=== PATIENT | female | born 2000 | race Caucasian/White ===

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

== ENCOUNTER 2022-11-13 19:21 | Inpatient (IN) ==
--- NOTE | 2022-11-13 19:59 | Emergency Department Note ---
Impression & Plan Depression with suicidal ideation ED Provider Note NAME: BRITTANY STEPHEN AGE: 22 SEX: F : 2000 ARRIVES VIA: Walk-In INFORMANT: Patient, ED PROVIDER(S): Davis Ortega MD CHIEF COMPLAINT: Suicidal ideation, thoughts of overdose MEDICAL DECISION MAKING: Patient's blood work shows a normal white count H&H and platelet count. Kidney function is unremarkable. Patient did recently undergo treatment for URI w/ Z pack. Patient has a normal white count H&H and platelet count. Patient was the medically cleared seen and evaluated by the psych manager case. Referrals were made and the patient was admitted to the inpatient psychiatric service. Urine culture pending at the time of admission. Patient does not complain of dysuria at this time Prior /Outside records reviewed: I did review [facility] crisis intervention services from July 2017. Patient had plan to kill herself on August 25 without active plan but has had ideas such as crashing car hanging or overdosing. Differential diagnosis: Mood disorder, infection, hypoglycemia, electrolyte abnormalities, cardiac sources, intracerebral event, toxicologic, trauma, neurologic, as well as other pathologies. HPI: Patient does present due to concern for suicidal ideation with plan to overdose on pills which were her prescription medications. Patient states that she had been in her room and the grandmother had noted that she had gone to get a drink and never came out and that she was crying and wanted to overdose. The patient did not take the medications. The patient does have a prior history of inpatient admission in 2018 at the [facility]. Patient has had thoughts of overdose but no prior history of attempted suicide. Patient Nuys any [place] or [place]. Patient has been having some [facility] which have made things difficult for her. The patient states that she has had increased sleep and that her appetite has been poor. Patient did recently have a cold and finished a Z- Del yesterday. The patient does vape. The patient uses alcohol rarely. Patient does use marijuana. PAST MEDICAL HISTORY: See Below PAST SURGICAL HISTORY: See Below SOCIAL HISTORY: See Below HOME MEDICATIONS: See Below ALLERGIES: See Below VITALS: See Below PHYSICAL EXAMINATION: GENERAL: NAD, non-toxic. EYE EXAM: Normal conjunctiva. PERRL, no anisocoria and EOM's grossly intact w/o pain. OROPHARYNX: Moist mucus membranes, grossly normal dentition. NECK: Supple, no nuchal rigidity, no adenopathy, non-tender. No signs of meningismus. FROM of the neck with good chin to chest and neck extension. No stridor. LUNGS: Clear to auscultation. Normal chest wall mechanics. HEART: NSR, no MRG. ABDOMEN: Abdomen soft, non-tender, no masses, no rebound or guarding. BACK: No CVA TTP. SKIN: No rashes and no bruising. UPPER EXTREMITIES: Upper extremities are grossly normal. LOWER EXTREMITIES: Grossly normal, no edema. NEURO EXAM: A&O x3, cranial nerves II-XII grossly intact, normal speech, moves all 4 extremities. Psych: Depressed mood, positive SI with plan, negative HI or AVH. Past Med/Surg History Medical History Depression Surgical History History of tonsillectomy Social History Smoking Status: Current every day smoker Tobacco Type: E-cigarettes / Vaping Preferred Language: Romansh Communication Ability: Effective Strike On Machine Operator Required: No Beliefs That Will Affect Care: None Feels Safe at Home: Yes Gender Identity: Female Assistive Devices: None Allergies Allergies Allergy/AdvReac Type Severity Reaction Status Date / Time Flu Virus Vaccine Allergy Unknown HIVES Uncoded 03/14/20 16:25 Home Meds Home Medications Medication Instructions Recorded Confirmed Control Pills 1 tab PO DAILY 08/07/18 03/14/20 bupropion HCl 150 mg 24 hr tablet, 150 mg PO QAM 03/14/20 11/13/22 extended release (Wellbutrin XL) cetirizine 10 mg tablet (Zyrtec) 10 mg PO DAILY PRN Allergy Symptoms 11/13/22 11/13/22 paroxetine HCl 30 mg tablet (Paxil) 30 mg PO DAILY 11/13/22 11/13/22 Results & Data (ED) Vital Signs Vital Signs - 24 hr 11/13/22 19:24 Temperature 36.3 C L Temperature Source Temporal Artery Scan Pulse Rate 74 Respiratory Rate 18 Respiratory Effort / Characteristics Non-Labored Spontaneous Respiratory Depth Normal Respiratory Pattern Regular Blood Pressure 129/83 Blood Pressure Mean 98 Pulse Oximetry 97 Oxygen Delivery Method Room Air Sepsis Recent Fever Within 48 Hours No Sepsis New/Unexplained Change in Mental Status No Sepsis Action Taken by Nursing No Action Required Home Medications Current Medication List: was personally reviewed by me Laboratory Data Attestation: I reviewed the patient's lab results. 11/13/22 20:21 11/13/22 20:21 Lab Results 11/13/22 11/13/22 11/13/22 Range/Units 19:46 19:46 20:04 WBC (4.8-10.8) K/ul RBC (4.20-5.40) M/uL Hgb (12.0-16.0) g/dl Hct (37.0-47.0) % MCV (80.0-100.0) fL MCH (25.0-34.0) pg MCHC (32.0-36.0) g/dL RDW Std Deviation (36.4-46.3) fL RDW Coeff of Aguilar (11.5-14.5) % Plt Count (130-400) K/uL MPV (9.4-12.4) fL Immature Gran % (Auto) % Neut % (Auto) % Lymph % (Auto) % Pender % (Auto) % Eos % (Auto) % Baso % (Auto) % Neut # (Auto) (1.40-6.50) K/uL Lymph # (Auto) (1.2-3.4) K/uL Pender # (Auto) (0.11-0.59) K/uL Eos # (Auto) (0-0.50) K/uL Baso # (Auto) (0-0.2) K/uL Immature Gran # (Auto) (0.01-0.20) K/uL Sodium (136-145) mmol/L Potassium (3.5-5.1) mmol/L Chloride (98-107) mmol/L Carbon Dioxide (21-32) mmol/L Anion Gap (3-11) BUN (6-23) mg/dl Creatinine (0.6-1.2) mg/dl Est Cr Clr Drug Dosing ml/min Est GFR ( Amer) ml/min Est GFR (Non-Af Amer) ml/min BUN/Creatinine Ratio (10-20) Glucose (70-99(Fasting)) mg/dl Calcium (8.6-10.3) mg/dl Total Bilirubin (0.2-1.0) mg/dl AST (13-39) U/L ALT (7-52) U/L Alkaline Phosphatase (34-104) U/L Total Protein (6.0-8.3) gm/dl Albumin (3.4-5.0) gm/dl Globulin (2.5-4.0) gm/dl Albumin/Globulin Ratio (0.9-2) TSH (0.300-4.500) uIu/ml Urine Color Dark Yellow Urine Appearance Cloudy A (Clear) Urine pH 6.0 (4.5-7.5) Ur Specific [place] 1.028 (1.000-1.030) Urine Protein Negative (Negative) Urine Glucose (UA) Negative (Negative) Urine Ketones Trace H (Negative) Urine Blood Negative (Negative) Urine Nitrite Positive A (Negative) Urine Bilirubin Negative (Negative) Urine Urobilinogen Negative (Negative) Ur Leukocyte Esterase Negative (Negative) Urine WBC (Auto) 5-10 H (0-5) /hpf Urine RBC (Auto) 0-4 (0-4) /hpf U Hyaline Cast (Auto) 1-5 (0-5) /lpf U Epithel Cells (Auto) >30 H (0-5) /lpf Urine Bacteria (Auto) 1+ H (Negative) Urine Test Negative (Negative) Salicylates (3.0-30) mg/dl Urine Opiates Screen Neg (Neg) Ur Methadone, Qual Neg (Neg) Acetaminophen (10-30) ug/ml Urine Barbiturates Neg (Neg) Ur Phencyclidine (PCP) Neg (Neg) U Amphetamin/Meth Scrn Neg (Neg) MDMA (Ecstasy) Screen Pos H (Neg) U Benzodiazepines Scrn Neg (Neg) Ur Cocaine Metabolite Neg (Neg) U Marijuana (THC) Screen Pos H (Neg) Ethyl Alcohol mg/dL (<10.0) mg/dl SARS-CoV-2, RNA, NAAT (NEGATIVE) 11/13/22 11/13/22 11/13/22 Range/Units 20:04 20:20 20:21 WBC 9.09 (4.8-10.8) K/ul RBC 4.15 L (4.20-5.40) M/uL Hgb 13.7 (12.0-16.0) g/dl Hct 40.2 (37.0-47.0) % MCV 96.9 (80.0-100.0) fL MCH 33.0 (25.0-34.0) pg MCHC 34.1 (32.0-36.0) g/dL RDW Std Deviation 42.5 (36.4-46.3) fL RDW Coeff of Aguilar 12.0 (11.5-14.5) % Plt Count 235 (130-400) K/uL MPV 9.5 (9.4-12.4) fL Immature Gran % (Auto) 0.3 % Neut % (Auto) 61.9 % Lymph % (Auto) 30.5 % Pender % (Auto) 5.5 % Eos % (Auto) 1.5 % Baso % (Auto) 0.3 % Neut # (Auto) 5.62 (1.40-6.50) K/uL Lymph # (Auto) 2.77 (1.2-3.4) K/uL Pender # (Auto) 0.50 (0.11-0.59) K/uL Eos # (Auto) 0.14 (0-0.50) K/uL Baso # (Auto) 0.03 (0-0.2) K/uL Immature Gran # (Auto) 0.03 (0.01-0.20) K/uL Sodium (136-145) mmol/L Potassium (3.5-5.1) mmol/L Chloride (98-107) mmol/L Carbon Dioxide (21-32) mmol/L Anion Gap (3-11) BUN (6-23) mg/dl Creatinine (0.6-1.2) mg/dl Est Cr Clr Drug Dosing ml/min Est GFR ( Amer) ml/min Est GFR (Non-Af Amer) ml/min BUN/Creatinine Ratio (10-20) Glucose (70-99(Fasting)) mg/dl Calcium (8.6-10.3) mg/dl Total Bilirubin (0.2-1.0) mg/dl AST (13-39) U/L ALT (7-52) U/L Alkaline Phosphatase (34-104) U/L Total Protein (6.0-8.3) gm/dl Albumin (3.4-5.0) gm/dl Globulin (2.5-4.0) gm/dl Albumin/Globulin Ratio (0.9-2) TSH (0.300-4.500) uIu/ml Urine Color Urine Appearance (Clear) Urine pH (4.5-7.5) Ur Specific [place] (1.000-1.030) Urine Protein (Negative) Urine Glucose (UA) (Negative) Urine Ketones (Negative) Urine Blood (Negative) Urine Nitrite (Negative) Urine Bilirubin (Negative) Urine Urobilinogen (Negative) Ur Leukocyte Esterase (Negative) Urine WBC (Auto) (0-5) /hpf Urine RBC (Auto) (0-4) /hpf U Hyaline Cast (Auto) (0-5) /lpf U Epithel Cells (Auto) (0-5) /lpf Urine Bacteria (Auto) (Negative) Urine Test (Negative) Salicylates < 3.0 L (3.0-30) mg/dl Urine Opiates Screen (Neg) Ur Methadone, Qual (Neg) Acetaminophen < 3 L (10-30) ug/ml Urine Barbiturates (Neg) Ur Phencyclidine (PCP) (Neg) U Amphetamin/Meth Scrn (Neg) MDMA (Ecstasy) Screen (Neg) U Benzodiazepines Scrn (Neg) Ur Cocaine Metabolite (Neg) U Marijuana (THC) Screen (Neg) Ethyl Alcohol mg/dL (<10.0) mg/dl SARS-CoV-2, RNA, NAAT NEGATIVE (NEGATIVE) 11/13/22 11/13/22 11/13/22 Range/Units 20:21 20:21 20:22 WBC (4.8-10.8) K/ul RBC (4.20-5.40) M/uL Hgb (12.0-16.0) g/dl Hct (37.0-47.0) % MCV (80.0-100.0) fL MCH (25.0-34.0) pg MCHC (32.0-36.0) g/dL RDW Std Deviation (36.4-46.3) fL RDW Coeff of Aguilar (11.5-14.5) % Plt Count (130-400) K/uL MPV (9.4-12.4) fL Immature Gran % (Auto) % Neut % (Auto) % Lymph % (Auto) % Pender % (Auto) % Eos % (Auto) % Baso % (Auto) % Neut # (Auto) (1.40-6.50) K/uL Lymph # (Auto) (1.2-3.4) K/uL Pender # (Auto) (0.11-0.59) K/uL Eos # (Auto) (0-0.50) K/uL Baso # (Auto) (0-0.2) K/uL Immature Gran # (Auto) (0.01-0.20) K/uL Sodium 138 (136-145) mmol/L Potassium 4.0 (3.5-5.1) mmol/L Chloride 107 (98-107) mmol/L Carbon Dioxide 27 (21-32) mmol/L Anion Gap 4 (3-11) BUN 12 (6-23) mg/dl Creatinine 0.66 (0.6-1.2) mg/dl Est Cr Clr Drug Dosing 141.2 ml/min Est GFR ( Amer) 144.3 ml/min Est GFR (Non-Af Amer) 124.5 ml/min BUN/Creatinine Ratio 18.2 (10-20) Glucose 80 (70-99(Fasting)) mg/dl Calcium 9.3 (8.6-10.3) mg/dl Total Bilirubin 0.7 (0.2-1.0) mg/dl AST 14 (13-39) U/L ALT 15 (7-52) U/L Alkaline Phosphatase 65 (34-104) U/L Total Protein 6.9 (6.0-8.3) gm/dl Albumin 4.3 (3.4-5.0) gm/dl Globulin 2.6 (2.5-4.0) gm/dl Albumin/Globulin Ratio 1.7 (0.9-2) TSH 0.787 (0.300-4.500) uIu/ml Urine Color Urine Appearance (Clear) Urine pH (4.5-7.5) Ur Specific [place] (1.000-1.030) Urine Protein (Negative) Urine Glucose (UA) (Negative) Urine Ketones (Negative) Urine Blood (Negative) Urine Nitrite (Negative) Urine Bilirubin (Negative) Urine Urobilinogen (Negative) Ur Leukocyte Esterase (Negative) Urine WBC (Auto) (0-5) /hpf Urine RBC (Auto) (0-4) /hpf U Hyaline Cast (Auto) (0-5) /lpf U Epithel Cells (Auto) (0-5) /lpf Urine Bacteria (Auto) (Negative) Urine Test (Negative) Salicylates (3.0-30) mg/dl Urine Opiates Screen (Neg) Ur Methadone, Qual (Neg) Acetaminophen (10-30) ug/ml Urine Barbiturates (Neg) Ur Phencyclidine (PCP) (Neg) U Amphetamin/Meth Scrn (Neg) MDMA (Ecstasy) Screen (Neg) U Benzodiazepines Scrn (Neg) Ur Cocaine Metabolite (Neg) U Marijuana (THC) Screen (Neg) Ethyl Alcohol mg/dL < 10.0 (<10.0) mg/dl SARS-CoV-2, RNA, NAAT (NEGATIVE) Administered Medications Bupropion HCl (Bupropion Xl 150 Mg Tabcr) 150 mg PO [facility] Stop: 12/14/22 10:29 Last Admin: 11/14/22 11:24 Dose: 150 mg Documented By: KALIF Paroxetine [facility] ([facility]ox[facility] Hcl 20 Mg Tab) [facility] [place]: 12/14/22 10:29 Last Admin: 11/14/22 11:24 Dose: 40 mg Documented By: TLF Discharge Plan Visit Data Chief Complaint: Mental Health Evaluation Stated Complaint: SUICIDAL,SEVERE DEPRESSION,MHE ED Provider: Davis Ortega Discharge Problem: Depression with suicidal ideation Patient Disposition: Admitted As Inpatient Discharge Instructions Interventions: ED Discharge Assessment Last Done: 11/13/22 21:54
[2022-11-13 20:37] LABS: Pregnancy Test, Urine Negative (Negative)
[2022-11-13 20:38] LABS: Basophils # (auto) 0.03 K/uL (0-0.2); Basophils % (auto) 0.3 %; Eosinophils # (auto) 0.14 K/uL (0-0.50); Eosinophils % (auto) 1.5 %; Hematocrit (blood only) 40.2 % (37.0-47.0); Hemoglobin 13.7 g/dl (12.0-16.0); Immature Granulocytes # (auto) 0.03 K/uL (0.01-0.20); Immature Granulocytes % (auto) 0.3 %; Lymphocytes # (auto) 2.77 K/uL (1.2-3.4); Lymphocytes % (auto) 30.5 %; Mean Corpuscular Hgb Conc 34.1 g/dL (32.0-36.0); Mean Corpuscular Volume 96.9 fL (80.0-100.0); Mean Platelet Volume 9.5 fL (9.4-12.4); Monocytes % (auto) 5.5 %; Neutrophils # (auto) 5.62 K/uL (1.40-6.50); Neutrophils % (auto) 61.9 %; Platelet Count 235 K/uL (130-400); RDW Standard Deviation 42.5 fL (36.4-46.3); Red Blood Count 4.15 M/uL (4.20-5.40); White Blood Count 9.09 K/ul (4.8-10.8)
[2022-11-13 20:38] LABS: Appearance Urine Cloudy (Clear); Bacteria Urine Automated 1+ (Negative); Bilirubin Urine Negative (Negative); Blood Urine Negative (Negative); Color Urine Dark Yellow; Epithelial Cell Urine Auto >30 /lpf (0-5); Glucose Urine UA Negative (Negative); Ketones Urine Trace (Negative); Leukocyte Esterase Urine Negative (Negative); Nitrite Urine Positive (Negative); Protein Urine Negative (Negative); Specific Gravity Urine 1.028 (1.000-1.030); Urobilinogen Urine Negative (Negative)
[2022-11-13 20:52] LABS: Albumin Globulin Ratio 1.7 (0.9-2); Albumin Level 4.3 gm/dl (3.4-5.0); BUN Creatinine Ratio 18.2 (10-20); Bilirubin,Total 0.7 mg/dl (0.2-1.0); Calcium 9.3 mg/dl (8.6-10.3); Creatinine Clr Calc Pharmacy 141.2 ml/min; Est GFR (African American) 144.3 ml/min; Est GFR (Non-African American) 124.5 ml/min; Globulin 2.6 gm/dl (2.5-4.0); Total Protein 6.9 gm/dl (6.0-8.3)
[2022-11-13 20:56] LABS: RBC Urine Automated 0-4 /hpf (0-4)
[2022-11-13 21:01] LABS: Acetaminophen < 3 ug/ml (10-30); Salicylate < 3.0 mg/dl (3.0-30)
[2022-11-13 21:05] LABS: Amphetamines+Metham, Urine Neg (Neg); Barbiturates, Urine Neg (Neg); Benzodiazepine, Urine Neg (Neg); Cocaine, Urine Neg (Neg); MDMA (Ecstacy), Urine Pos (Neg); Methadone, Urine Neg (Neg); Opiate, Urine Neg (Neg); Phencyclidine, Urine Neg (Neg)
[2022-11-13] MEDS ORDERED: BISMUTH SUBSALICYLATE LIQD 236 ML PO PRN (22:29)
[2022-11-13] MEDS ORDERED: MAGNESIUM HYDROXIDE SUSP 30 ML UDC PO PRN (22:29)
[2022-11-13] MEDS ORDERED: hydrOXYzine HCl 25 MG TAB PO PRN ×2 (22:29)
[2022-11-13] MEDS ORDERED: ALUMINUM/MAGNESIUM SUSP 30 ML UDC PO PRN (22:29)
[2022-11-13] MEDS ORDERED: SODIUM CHLORIDE 0.65% NA SOLN 45 ML (OCEAN) PRN (22:29)
[2022-11-13] MEDS ORDERED: ACETAMINOPHEN 325 MG TAB PO PRN (22:29)
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
[2022-11-14] MEDS ORDERED: CETIRIZINE HCL 10 MG TABLET PO PRN (10:18)
[2022-11-14] MEDS: buPROPion XL 150 MG TABCR PO SCH (11:24)
[2022-11-14] MEDS: PARoxetine HCL 20 MG TAB PO SCH (11:24)
[2022-11-14] MEDS ORDERED: NICOTINE POLACRILEX 2 MG GUM MT PRN (18:57)
[2022-11-14] MEDS: NICOTINE 14 MG/24 HR PATCH TD SCH (19:48)
--- NOTE | 2022-11-15 06:21 | Psychiatric Progress Note ---
Date of Service November 15, 2022 Impression / Recommendations Impression 22 year old woman with a history of MDD and PTSD who was admitted for worsening depression and SI with plan to overdose in context of increased stressors and recent medical challenges. Diagnostically consistent with likely MDD, recurrent episode as well as complex PTSD and possible contribution from cannabis use/cannabis induced depressive symptoms. She is deemed in need of psychiatric hospitalization for diagnostic clarification, safety and stabilization, medication management and development of further coping skills. 11/15/2022: Mood starting to improve, fewer PTSD and depression symptoms; discussed UTI with hospitalist who recommended based on review of current past urine cultures that she been started on cefuroxime 250mg BID for 5 days which she is agreeable to. (1) Depression with suicidal ideation: (2) MDD (major depressive disorder), recurrent episode, severe: (3) Post traumatic stress disorder (PTSD): Plan 11/16/2022: Continue with current medications and tx plan. Start cefuroxime 250mg BID po for 5 days for UTI. 11/15/2022:Continue current medications and tx plan. 11/14/2022: The patient was admitted to the [facility] ([facility]) on q15 min checks (behavioral with suicide precautions) for safety. The patient will participate in group, recreational, and milieu therapies and will be offered additional individual and family sessions as clinically appropriate. -Increase Paxil to 40mg -Continue with Wellbutrin XL 150mg daily -Awaiting UA culture, just completed antibiotic course for UTI so will await s tarting antibiotic until culture returns unless symptoms worsen in meantime Inventory Assets Strengths: supportive relationships, willing to get treatment Needs: insurance, outpatient services, safety and stabilization, medication adjustment, additional coping skills Suicide Risk Level Suicide Risk Level: Moderate (q15 min suicide checks) (depression with SI with plan prior to admission but mood improving, feels safe in the hospital, able to safety contract and agrees to let nursing/staff know should they develop plan, intent or feel unable to remain safe. ) Risk Factors Assessment Male: No : Yes Do You Have Access To A Gun?: No Health Problems: Yes Mental Health Diagnoses: Yes Substance Use Disorders: Yes (cannabis use) Previous Attempt: Yes (interrupted attempt) Family History of Suicide: No Previous Psychiatric Hospitalization: Yes Protective Factors Assessment Employed: Yes ([employer]) Stable Relationships: Yes (with boyfriend) Good Rapport with Provider: Yes (with PCP) Interval History Identifying Information BRITTANY STEPHEN is a 22-year-old woman who currently lives with her maternal grandmother in [place], has a history of PTSD and MDD, and was admitted on 11/13/22 21:40 on a 201 voluntary commitment for SI with plan of overdosing on her Wellbutrin. Chief Complaint "I have a little more hope". Review of Systems Sleep Information Total Hours of Sleep: 7 Meal Information Percent Meal Consumed - Breakfast: 40 Percent Meal Consumed - Lunch: 100 Percent Meal Consumed - Dinner: 90 Subjective Subjective Patient was seen & assessed and interval progress reviewed with treatment team nursing and social work. Had her mom visit last night. [place] more hopeful this morning and is now reflecting on how she got to the point of feeling suicidal and not remembering that "there is so much help out there". She is liking the Paxil increase and denies any medication side effects. Sleeping well. Motivational interviewing and plans to avoid cannabis use after discharge, wants to start playing piano again instead as an alternative coping mechanism and habit. had some burning with urination this morning and thought her urine smelled "like it was infected". Has been experiencing chronic UTIs for last few months, recently completed 3 day z-pack for this. Physical Exam Psychiatric Orientation: alert and oriented x 3 Apperance: appropriately dressed and appropriately groomed Eye Contact: good eye contact Motor Behavior: no abnormal motor movements Speech: normal rate/rhythm/volume of speech Affect: + anxious affect and + constricted affect (but with more smiles) Mood: + depressed mood and + anxious mood Thought Process: goal directed thought process Thought Content: reality based without delusions Suicidal Thoughts: denies suicidal thoughts, denies suicidal plan and denies suicidal intent Homicidal Thoughts: denies homicidal thoughts Hallucinations: no auditory hallucinations and no visual hallucinations Cognition: recent memory grossly intact, remote memory grossly intact, attention grossly intact and language grossly intact Estimated Intelligence: consistent with education level Insight: + fair insight Judgment: + fair judgement Vital Signs (Past 24 Hours) Last Vital Signs Temp 36.9 C 11/14/22 06:00 Pulse 59 L 11/14/22 06:47 Resp 16 11/14/22 06:00 BP 101/68 11/14/22 06:47 Pulse Ox 98 11/14/22 06:00 O2 Del Method Room Air 11/14/22 06:00 Results & Data ([facility]) Current Inpatient Medications Current Inpatient Medications: Current Inpatient Medications Acetaminophen (Acetaminophen 325 Mg Tab) 650 mg PO Q4H PRN PRN Reason: Headache or Minor Fever Stop: 12/13/22 22:28 Al Hydrox/Mg Hydrox/Simethicone (Aluminum/Magnesium Susp 30 Ml Udc) 30 ml PO Q4H PRN PRN Reason: GI Upset Stop: 12/13/22 22:28 Bismuth Subsalicylate (Bismuth Subsalicylate Liqd 236 Ml) 15 ml PO PRN PRN PRN Reason: Loose Stool Stop: 12/13/22 22:28 Bupropion HCl (Bupropion Xl 150 Mg Tabcr) 150 mg PO QAM [facility] Stop: 12/14/22 10:29 Last Admin: 11/14/22 11:24 Dose: 150 mg Cetirizine HCl (Cetirizine Hcl 10 Mg Tablet) 10 mg PO DAILY PRN PRN Reason: Allergy Symptoms Stop: 12/14/22 10:17 Hydroxyzine HCl (Hydroxyzine Hcl 25 Mg Tab) 50 mg PO HSZ PRN PRN Reason: Insomnia Stop: 12/13/22 22:28 Hydroxyzine HCl (Hydroxyzine Hcl 25 Mg Tab) 25 mg PO Q4H PRN PRN Reason: Anxiety Stop: 12/13/22 22:28 Magnesium Hydroxide (Magnesium Hydroxide Susp 30 Ml Udc) 30 ml PO DAILY PRN PRN Reason: Constipation Stop: 12/13/22 22:28 Miscellaneous (Remove Nicoderm Patch) 1 each N/A DAILY@0859 [facility] Stop: 12/15/22 08:58 Nicotine (Nicotine 14 Mg/24 Hr Patch) 14 mg TD QAM [facility] Stop: 12/14/22 18:59 Last Admin: 11/14/22 19:48 Dose: 14 mg Nicotine Polacrilex (Nicotine Polacrilex 2 Mg Gum) 1 piece MT PRN PRN PRN Reason: smoking cessation Stop: 12/14/22 18:56 Paroxetine HCl (Paroxetine Hcl 20 Mg Tab) 40 mg PO QAM [facility] Stop: 12/14/22 10:29 Last Admin: 11/14/22 11:24 Dose: 40 mg Sodium Chloride (Sodium Chloride 0.65% Na Soln 45 Ml ([place])) 1 - 2 sprays NA PRN PRN PRN Reason: Nasal Dryness/Congestion Stop: 12/13/22 22:28 Mental Health & Subst Abuse Tx Therapist Name of Therapist: None Automobile Repossessor Name of Automobile Repossessor: None Post Discharge Appointments Primary Care Physician Name Of Family Doctor/PCP: Dr. Freitas
[2022-11-15] MEDS: buPROPion XL 150 MG TABCR PO SCH (08:49)
[2022-11-15] MEDS: NICOTINE 14 MG/24 HR PATCH TD SCH (08:49)
[2022-11-15] MEDS: PARoxetine HCL 20 MG TAB PO SCH (08:50)
--- NOTE | 2022-11-15 17:55 | Electrocardiogram Report ---
Test Reason : Blood Pressure : / mmHG Vent. Rate : 061 BPM Atrial Rate : 061 BPM P-R Int : 134 ms QRS Dur : 100 ms QT Int : 432 ms P-R-T Axes : 064 065 054 degrees QTc Int : 434 ms Normal sinus rhythm with sinus arrhythmia Normal ECG No previous ECGs available Confirmed by Nacho Paulson ([id number]) on 11/15/2022 5:55:00 PM Referred By: REFERRED SELF Confirmed By:Prince Paulson
[2022-11-15] MEDS: cefUROXime axetil 250 MG TABLET PO SCH (21:15)
[2022-11-16] MEDS: NICOTINE 14 MG/24 HR PATCH TD SCH (09:06)
[2022-11-16] MEDS: buPROPion XL 150 MG TABCR PO SCH (09:09)
[2022-11-16] MEDS: cefUROXime axetil 250 MG TABLET PO SCH ×2 (09:09→20:50)
[2022-11-16] MEDS: PARoxetine HCL 20 MG TAB PO SCH (09:09)
--- NOTE | 2022-11-16 15:01 | Psychiatric Progress Note ---
Date of Service November 16, 2022 Impression / Recommendations Impression 22 year old woman with a history of MDD and PTSD who was admitted for worsening depression and SI with plan to overdose in context of increased stressors and recent medical challenges. Diagnostically consistent with likely MDD, recurrent episode as well as complex PTSD and possible contribution from cannabis use/cannabis induced depressive symptoms. She is deemed in need of psychiatric hospitalization for diagnostic clarification, safety and stabilization, medication management and development of further coping skills. 11/16/22: as per Dr. De La Rosa, improving, sensitive to perceived rejection (1) Depression with suicidal ideation: (2) MDD (major depressive disorder), recurrent episode, severe: (3) Post traumatic stress disorder (PTSD): Plan 11/16/2022: continue current meds and tx plan 11/15/2022:Continue current medications and tx plan. Start cefuroxime 250mg BID po for 5 days for UTI. 11/14/2022: The patient was admitted to the [facility] ([facility]) on q15 min checks (behavioral with suicide precautions) for safety. The patient will participate in group, recreational, and milieu therapies and will be offered additional individual and family sessions as clinically appropriate. -Increase Paxil to 40mg -Continue with Wellbutrin XL 150mg daily -Awaiting UA culture, just completed antibiotic course for UTI so will await starting antibiotic until culture returns unless symptoms worsen in meantime Inventory Assets Strengths: supportive relationships, willing to get treatment Needs: insurance, outpatient services, safety and stabilization, medication adjustment, additional coping skills Suicide Risk Level Suicide Risk Level: Moderate (q15 min suicide checks) Suicide Risk Level Comments: Risk Factors Assessment Male: No : Yes Do You Have Access To A Gun?: No Health Problems: Yes Mental Health Diagnoses: Yes Substance Use Disorders: Yes (cannabis use) Previous Attempt: Yes (interrupted attempt) Family History of Suicide: No Previous Psychiatric Hospitalization: Yes Protective Factors Assessment Employed: Yes ([employer]) Stable Relationships: Yes (with boyfriend) Good Rapport with Provider: Yes (with PCP) Interval History Identifying Information BRITTANY STEPHEN is a 22-year-old woman who currently lives with her maternal grandmother in [place], has a history of PTSD and MDD, and was admitted on 11/13/22 21:40 on a 201 voluntary commitment for SI with plan of overdosing on her Wellbutrin. Chief Complaint "I'm motivated to cut back on MJ." Review of Systems Sleep Information Total Hours of Sleep: 6.5 Sleep Comments: pt on q-15 minute checks Meal Information Percent Meal Consumed - Breakfast: 100 Percent Meal Consumed - Lunch: 95 Percent Meal Consumed - Dinner: 100 Subjective Subjective Patient was seen & assessed and interval progress reviewed with nursing and social work. Patient reports improved mood and motivation. She recognizes that waking up and "hitting the bong all am" is not healthy and that she would like time for other things such as playing the piano. Reviewed need for family meeting/safety plan and expressed no urgency to leave the hospital even when directly questioned other than missed her cats. During visiting with grandmother expressed she felt abandoned by family by still being hospitalized, etc. Agreeable to meeting with boyfriend. Reviewed EKG with patient with normal QTc. Physical Exam Psychiatric Orientation: alert and oriented x 3 Apperance: appropriately dressed and appropriately groomed Eye Contact: good eye contact Motor Behavior: no abnormal motor movements Speech: normal rate/rhythm/volume of speech Affect: euthymic affect Mood: + anxious mood Thought Process: goal directed thought process Thought Content: reality based without delusions Suicidal Thoughts: denies suicidal thoughts Homicidal Thoughts: denies homicidal thoughts Hallucinations: no auditory hallucinations and no visual hallucinations Cognition: recent memory grossly intact, remote memory grossly intact, attention grossly intact and language grossly intact Estimated Intelligence: consistent with education level Insight: + fair insight Judgment: + fair judgement Vital Signs (Past 24 Hours) Last Vital Signs Temp 36.8 C 11/16/22 06:45 Pulse 56 L 11/16/22 06:46 Resp 16 11/16/22 06:45 BP 95/64 L 11/16/22 06:46 Pulse Ox 98 11/14/22 06:00 O2 Del Method Room Air 11/14/22 06:00 Results & Data ([facility]) Current Inpatient Medications Current Inpatient Medications: Current Inpatient Medications Acetaminophen (Acetaminophen 325 Mg Tab) 650 mg PO Q4H PRN PRN Reason: Headache or Minor Fever Stop: 12/13/22 22:28 Al Hydrox/Mg Hydrox/Simethicone (Aluminum/Magnesium Susp 30 Ml Udc) 30 ml PO Q4H PRN PRN Reason: GI Upset Stop: 12/13/22 22:28 Bismuth Subsalicylate (Bismuth Subsalicylate Liqd 236 Ml) 15 ml PO PRN PRN PRN Reason: Loose Stool Stop: 12/13/22 22:28 Bupropion HCl (Bupropion Xl 150 Mg Tabcr) 150 mg PO QAM [facility] Stop: 12/14/22 10:29 Last Admin: 11/16/22 09:09 Dose: 150 mg Cefuroxime Axetil (Cefuroxime Axetil 250 Mg Tablet) 250 mg PO BID [facility] Stop: 11/20/22 09:01 Last Admin: 11/16/22 09:09 Dose: 250 mg Cetirizine HCl (Cetirizine Hcl 10 Mg Tablet) 10 mg PO DAILY PRN PRN Reason: Allergy Symptoms Stop: 12/14/22 10:17 Hydroxyzine HCl (Hydroxyzine Hcl 25 Mg Tab) 50 mg PO HSZ PRN PRN Reason: Insomnia Stop: 12/13/22 22:28 Hydroxyzine HCl (Hydroxyzine Hcl 25 Mg Tab) 25 mg PO Q4H PRN PRN Reason: Anxiety Stop: 12/13/22 22:28 Magnesium Hydroxide (Magnesium Hydroxide Susp 30 Ml Udc) 30 ml PO DAILY PRN PRN Reason: Constipation Stop: 12/13/22 22:28 Miscellaneous (Remove Nicoderm Patch) 1 each N/A DAILY@0859 [facility] Stop: 12/15/22 08:58 Last Admin: 11/16/22 09:08 Dose: 1 each Nicotine (Nicotine 14 Mg/24 Hr Patch) 14 mg TD QAM [facility] Stop: 12/14/22 18:59 Last Admin: 11/16/22 09:06 Dose: 14 mg Nicotine Polacrilex (Nicotine Polacrilex 2 Mg Gum) 1 piece MT PRN PRN PRN Reason: smoking cessation Stop: 12/14/22 18:56 Paroxetine HCl (Paroxetine Hcl 20 Mg Tab) 40 mg PO QAM [facility] Stop: 12/14/22 10:29 Last Admin: 11/16/22 09:09 Dose: 40 mg Sodium Chloride (Sodium Chloride 0.65% Na Soln 45 Ml ([place])) 1 - 2 sprays NA PRN PRN PRN Reason: Nasal Dryness/Congestion Stop: 12/13/22 22:28 Mental Health & Subst Abuse Tx Therapist Name of Therapist: None 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 Case Management Appointment Comment: [address] [facility], [facility] [place] [address] Post Discharge Appointments Primary Care Physician Name Of Family Doctor/PCP: [facility] - Virgil Freitas PA-C Primary Care Date of Future Appointment with PCP: 11/25/22 Time of Appointment with PCP: 9:30 AM Provider Appointment Comment: [address] [facility], [place] [address] Contact Information Discharge Discharge Address: [address] [facility], [place] [address]
[2022-11-17] MEDS: NICOTINE 14 MG/24 HR PATCH TD SCH (08:33)
[2022-11-17] MEDS: PARoxetine HCL 20 MG TAB PO SCH (08:33)
[2022-11-17] MEDS: buPROPion XL 150 MG TABCR PO SCH (08:34)
[2022-11-17] MEDS: cefUROXime axetil 250 MG TABLET PO SCH (08:34)
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
== END 2022-11-17 13:20 | disposition home or self-care (01) | DRG 885 ==
LOC: ED 19:21 → SUATTDRO 21:40 → 3S 21:54